=== PATIENT | male | born 1930 | race Caucasian/White ===

== ENCOUNTER 2019-09-22 07:31 | Observation (INO) | payer MEDICARE ==
[2019-09-22 08:19] LABS: #Eosinphils 0.3 thou/uL (0.0-0.7); #Lymphocytes 1.4 thou/uL (1.20-3.40); #Monocytes 0.7 thou/uL (0.11-0.59); #Neutrophils 4.9 thou/uL (1.40-6.50); %Basophils 0.6 % (0.0-1.0); %Lymphocytes 19.2 % (21.0-51.0); %Monocytes 8.9 % (0.0-10.0); %Neutrophils 67.4 % (42.0-75.0); Hemoglobin 11.8 g/dL (14.0-18.0); Mean Corpuscular HGB CONC 33.4 g/dL (32.0-36.0); Mean Corpuscular Hemoglobin 30.7 pg (27.0-31.0); Mean Platelet Volume 7.5 fL (7.4-10.4); Platelet Count 208 thou/uL (130-400); RBC Distribution Width 12.8 % (11.5-14.5); Red Blood Cell (RBC) Count 3.84 mill/uL (4.70-6.10); White Blood Cell (WBC) Count 7.3 thou/uL (4.8-10.8)
--- NOTE | 2019-09-22 08:31 | RAD ---
PORTABLE CHEST: DATE: 09/22/2019. PROVIDED CLINICAL HISTORY: Chest pain. FINDINGS: The lung apices are obscured by overlying patient soft tissues, limiting assessment. Cardiac silhoue tte is within normal limits for portable technique. No focal consolidation, pleural fluid, or pneumo thorax apparent. IMPRESSION: Limited study. Followup PA and lateral views of the chest may be useful as indicated. POS: OFF
[2019-09-22 08:57] LABS: ALT (SGPT) 7 U/L (8-55); AST (SGOT) 30 U/L (5-34); Albumin 3.7 g/dL (3.4-4.8); Alkaline Phosphatase 82 U/L (40-110); Anion Gap 9 mmol/L (10-20); BUN (Urea Nitrogen) 18 mg/dL (8.4-25.7); Bilirubin, Total 0.5 mg/dL (0.2-1.2); Calc. Creatinine Clearance 0 mL/min (70-130); Calcium 10.3 mg/dL (7.8-10.44); Carbon Dioxide 29 mmol/L (23-31); Chloride 101 mmol/L (98-107); Estimated GFR-MDRD 56; Globulin 3.9 g/dL (2.4-3.5); Glucose 110 mg/dL (83-110); Potassium 5.2 mmol/L (3.5-5.1); Protein, Total 7.6 g/dL (5.8-8.1); Sodium 134 mmol/L (136-145)
--- NOTE | 2019-09-22 09:36 | CT ---
Exam: Head CT without contrast HISTORY: Altered mental status COMPARISON: none FINDINGS: Hemorrhage: No intraparenchymal hemorrhage or extra-axial hematoma. Brain parenchyma: Cortical abrams-white matter differentiation is preserved. No mass effect or midline shift. Basilar cisterns are patent.Age-appropriate atrophy. White matter hypodensities due to chronic small vessel ischemic change Ventricular system: Ventricles and sulci are patent and symmetric. Calvarium: Intact. Sinuses and mastoid air cells: Complete opacification of the left mastoid air cells. Correlate clinic ally. IMPRESSION: 1. No acute intracranial process. 2. Complete opacification the left mastoid air cells. Correlate for left mastoiditis.
--- NOTE | 2019-09-22 09:43 | CT ---
CT PULMONARY ANGIOGRAM WITH IV CONTRAST AND 3-D POSTPROCESSING: HISTORY:Chest pain, cough FINDINGS: There is good contrast opacification of the pulmonary arterial vasculature without filling defects to suggest pulmonary embolism. The thoracic aorta is not opacified without aneurysm. There is evidence of old granulomatous disease. No pleural or pericardial effusions are seen. A 5 mm perifissural nodule is seen on the right. There is a 7 mm solid parenchymal nodule in the left lung base. No pneumothoraces, focal areas of consolidation are noted. There are dependent changes in the lung ba ses. Bronchiectatic changes are noted in the left lower lobe. There are degenerative changes in the spine. IMPRESSION: No CT evidence of pulmonary embolism. RECOMMENDATION: Follow-up CT scan of the chest is recommended in 3 months to evaluate the left basila r lung nodule.
[2019-09-22] MEDS ORDERED: Aspirin Chewable 81 MG TAB ONE (10:25)
[2019-09-22] MEDS ORDERED: Iopamidol 370 76% 100 ML VIAL ONE (10:47)
[2019-09-22 11:52] LABS: Troponin I 0.013 ng/mL (< 0.028)
[2019-09-22] MEDS ORDERED: traMADol HCl 50 MG TAB PO PRN (12:25)
[2019-09-22] MEDS ORDERED: Guaifenesin DM 100-10/5 ML UDCUP PO PRN (12:25)
[2019-09-22] MEDS ORDERED: Bisacodyl 10 MG SUPP PR PRN (12:25)
[2019-09-22] MEDS ORDERED: Senokot S 8.6-50 MG TAB PO PRN (12:25)
[2019-09-22] MEDS ORDERED: Ondansetron PF 4 MG/2 ML Vial IVP PRN ×2 (12:25→12:26)
[2019-09-22] MEDS ORDERED: Acetaminophen 325 MG TAB PO PRN ×2 (12:25→12:26)
[2019-09-22] MEDS ORDERED: Ondansetron ODT 4 MG TAB SL PRN (12:26)
[2019-09-22 12:32] VITALS: BMI 23.6
[2019-09-22] MEDS: Sodium Chloride 0.9% 1,000 ML IV SCH (13:36)
--- NOTE | 2019-09-22 14:12 | HP ---
REASON FOR ADMISSION: Chest pain. HISTORY OF PRESENTING ILLNESS: The patient gives history of having left-sided chest pain which started last evening. This was 7/10 in intensity and was always present. He could not sleep the whole night. He has had cold symptoms for the last 2 weeks. They are actually from [place] and visiting here from the last 3 weeks. The patient's 2 daughters and 2 grandsons are in the area. He has had his flu shot in July. Last Cardiology followup was in May of this year in [place]. Currently, he has no complaints of cough or expectoration. Last stress test was years ago. PAST MEDICAL AND SURGICAL HISTORY: History of coronary artery disease with 3 stents placed in 1998; Parkinson disease; macular degeneration; dyslipidemia; neuropathy in both feet; cataract surgery; right shoulder surgery; diabetes, on diet control; left total knee replacement; right upper lobe lung cyst removed via thoracotomy; back surgery; and laparoscopic cholecystectomy. CURRENT MEDICATIONS: The patient is on: 1. Protonix 40 mg p.o. daily. 2. Escitalopram 20 mg p.o. daily. 3. Gabapentin 600 mg p.o. 4 times daily. 4. Carbidopa/levodopa 25/250 mg p.o. 4 times daily. 5. Atorvastatin 80 mg p.o. daily. 6. Combigan eye drops. 7. Ultram p.r.n. twice daily. 8. Vitamin C of 1000 mg p.o. daily. 9. Calcium with vitamin D one tablet once daily. 10. Aspirin 81 mg p.o. daily. ALLERGIES: NO KNOWN DRUG ALLERGIES. PERSONAL HISTORY: Does not abuse alcohol or drugs. No history of smoking. He ambulates with a walker or a cane. FAMILY HISTORY: Mother at the age of 70 years. She has had history of ID. Father lived up to 93 and of natural causes. CODE STATUS: Do not attempt to resuscitate. This was discussed with the patient. 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 REVIEW OF SYSTEMS: CONSTITUTIONAL: Negative for weight loss or gain, ability to conduct usual activities. SKIN: Negative for rash, itching. EYES: Negative for double vision, pain. ENT/MOUTH: Negative for nose bleeding, neck stiffness, pain, tenderness. CARDIOVASCULAR: Negative for palpitations, dyspnea on exertion, orthopnea. RESPIRATORY: Negative for shortness of breath, wheezing, cough, hemoptysis, fever or night sweats. GASTROINTESTINAL: Negative for poor appetite, abdominal pain, heartburn, nausea , vomiting, constipation, or diarrhea. GENITOURINARY: Negative for urgency, frequency, dysuria, nocturia. MUSCULOSKELETAL: Negative for pain, swelling. NEUROLOGIC/PSYCHIATRIC: Negative for anxiety, depression. ALLERGY/IMMUNOLOGIC: Negative for skin rash, bleeding tendency. PHYSICAL EXAMINATION: GENERAL: The patient is an 89-year-old male, who is currently not in any acute distress. VITAL SIGNS: Blood pressure 140/64, pulse 62 per minute, respiratory rate 18 per minute, temperature 98.3 degrees Fahrenheit, saturating 95% on room air. NECK: Supple. No elevated JVD. 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 HEENT: Eyes; extraocular muscles are intact. Pupils are reacting to light. Oral cavity; mucous membranes are moist. No exudates or congestion. CARDIOVASCULAR: S1 and S2 heard. Regular rhythm. RESPIRATORY: Air entry 1+ bilateral. No rales or rhonchi. ABDOMEN: Soft. Bowel sounds heard. No tenderness, rigidity, or guarding. EXTREMITIES: No peripheral edema or calf tenderness. VASCULAR SYSTEM: Peripheral pulses 1+ bilateral. No ischemic ulcerations or gangrene. CENTRAL NERVOUS SYSTEM: No gross focal deficits noted. The patient moves all 4 extremities. PSYCHIATRIC: The patient's mood is euthymic. No hallucinations or delusions. LABORATORY DATA: EKG done shows sinus bradycardia at 58 beats per minute. There is poor R-wave progression. White count of 7, H and H 11 and 35, platelet count 208, MCV is 92 with 67% neutrophils. Potassium 5.2, serum bicarb 29, BUN 18, creatinine 1.2, serum glucose 110. AST, ALT, and alkaline phosphatase within normal limits. Albumin 3.7. Troponin x2, negative. CT angio chest done shows no evidence of PE. There is incidental finding of 7 mm solid parenchymal nodule in the left lung base. There is also 5 mm perifissural nodule on the right. CT brain done showed no acute intracranial process. There was complete opacification of the left mastoid. CLINICAL IMPRESSION AND PLAN: The patient will be under observation on telemetry for chest pain which likely is noncardiac. He has had cough, cold, and fever for the last [address] scan, the patient also has mastoid fullness on the left side. In view of this, we will place him on Augmentin 875 mg twice daily. We will obtain one more set of troponin, and no further cardiac workup will be done. This was discussed with the patient, and he does not want a stress test or anything aggressive done for him. The patient will be closely monitored overnight and likely will be discharged in the morning. We will continue him on aspirin, Lipitor, Sinemet, home dose of Neurontin, Ultram p.r.n. DuoNeb q.6 hourly p.r.n. Gentle hydration with normal saline at 70 mL/hour for a total of 2 L. Echo with 2D Doppler for LV function. We will continue to closely monitor him on telemetry. 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 in [place]. His primary care physician's name is Dr. Michael Barrett in [facility]. Job ID: [id number] MTDD
[2019-09-22] MEDS: Carbidopa/Levodopa 25-250 mg Tablet PO SCH ×3 (14:24→20:41)
[2019-09-22 15:11] LABS: Troponin I Less than 0.010 ng/mL (< 0.028)
[2019-09-22] MEDS: Gabapentin 300 MG CAP PO SCH ×2 (16:16→20:40)
[2019-09-22] MEDS ORDERED: Atorvastatin Calcium 40 MG TAB PO SCH (21:00)
[2019-09-22] MEDS: Benzonatate 100 MG CAP PO PRN (21:32)
[2019-09-23] MEDS: Benzonatate 100 MG CAP PO PRN (02:19)
[2019-09-23] MEDS: Sodium Chloride 0.9% 1,000 ML IV SCH (02:23)
[2019-09-23] MEDS: guaiFENesin/Codeine Phosphate 200 mg/20 mg 10 ml UD Cup PO PRN ×2 (05:47→11:21)
[2019-09-23 06:28] LABS: Anion Gap 9 mmol/L (10-20); BUN (Urea Nitrogen) 15 mg/dL (8.4-25.7); Calc. Creatinine Clearance 50 mL/min (70-130); Calcium 8.6 mg/dL (7.8-10.44); Carbon Dioxide 27 mmol/L (23-31); Chloride 103 mmol/L (98-107); Estimated GFR-MDRD 68; Glucose 106 mg/dL (83-110); Sodium 135 mmol/L (136-145)
[2019-09-23] MEDS ORDERED: Enoxaparin Sodium 40 MG/0.4 ML SYRINGE SC SCH (09:00)
[2019-09-23] MEDS ORDERED: Aspirin Chewable 81 MG TAB PO SCH (09:00)
[2019-09-23] MEDS ORDERED: Carbidopa/Levodopa 25-250 mg Tablet PO SCH (09:00)
[2019-09-23] MEDS: Gabapentin 300 MG CAP PO SCH (09:18)
[2019-09-23 12:17] VITALS: BP 134/63; TEMP 98.2
--- NOTE | 2019-09-23 14:10 | DIS ---
DATE OF ADMISSION: 09/22/2019 DATE OF DISCHARGE: 09/23/2019 PRIMARY CARE PROVIDER: Dr. Michael Barrett. DISCHARGE DIAGNOSES: 1. Chest pain. 2. Chest pain most likely secondary to musculoskeletal etiology. CONDITION OF PATIENT ON THE DAY OF DISCHARGE: Stable. I assessed Mr. Ward on the day of discharge. He reports that chest pain is better. Vital signs are stable. S1 and S2 are heard, regular. Lungs are clear to auscultation bilaterally. He has reproducible chest wall tenderness. DISCHARGE MEDICATIONS: He has been started on guaifenesin/codeine syrup 5 mL q.4 hours p.r.n., prescription for 300 mL to be dispensed. Otherwise, no change was made to his pre-admission home medications as dictated by Dr. Bang in his history and physical note dated September 22, 2019. HOSPITAL COURSE: Mr. Ward is a pleasant 89-year-old gentleman, who was admitted to [facility] on September 23, 2019, for chest pain. He did not wish for any investigations like stress test. He had his cardiac enzymes checked. Troponin I was negative x3. He also received guaifenesin and codeine syrup which helped with his cough. He reported improvement in the chest pain. 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 POST ACUTE CARE FOLLOWUP: With primary care provider and with his reel and rewinder operator. DIET: Cardiac. ACTIVITY: As tolerated. DISCHARGE DESTINATION: Home. Many thanks for allowing me to participate in your patient's care. Please feel free to contact me with any questions or concerns. Job ID: [id number]
== END 2019-09-23 14:00 | disposition home or self-care (01) ==
LOC: ERS 07:31 → 2SW 12:03
PROVIDERS: ADMIT Internal Medicine; ATTEND Internal Medicine
DX: R07.9 Chest pain, unspecified (principal); I25.10 Atherosclerotic heart disease of native coronary artery without angina pectoris; G20 Parkinson's disease; E78.5 Hyperlipidemia, unspecified; E11.42 Type 2 diabetes mellitus with diabetic polyneuropathy; R05 Cough; Z79.82 Long term (current) use of aspirin; Z66 Do not resuscitate; Z95.5 Presence of coronary angioplasty implant and graft; Z79.899 Other long term (current) drug therapy
CPT/HCPCS: 70450; 71045; 71275; 80048; 80053; 84484 ×2; 85025; 93005; 93306; 96360; 96361 ×2; 96372; 97139 ×2; 99285; G0378 ×3; 36415; J1650; Q9967